=== PATIENT | female | born 1945 | race Caucasian/White ===

== ENCOUNTER 2017-10-03 15:47 | Observation (INO) | payer MEDICARE ==
[~2017-10-03 15:47] MED LIST: ISOVUE-370 76%-LOCM 1 ML ONE
[2017-10-03 16:32] VITALS: BMI 34.3
[2017-10-03] MEDS ORDERED: Ondansetron HCl/PF 4 MG/2 ML Vial SLOW IVP PRN (16:55)
[2017-10-03] MEDS ORDERED: Sodium Chloride 0.9% 1,000 ML IV SCH ×2 (17:30→19:16)
[2017-10-03 17:31] LABS: #Basophils 0.1 thou/uL (0.0-0.2); #Eosinphils 0.2 thou/uL (0.0-0.7); #Monocytes 0.5 thou/uL (0.11-0.59); %Basophils 0.5 % (0.0-1.0); %Lymphocytes 20.8 % (21.0-51.0); %Monocytes 5.2 % (0.0-10.0); %Neutrophils 71.6 % (42.0-75.0); Hemoglobin 13.2 g/dL (12.0-16.0); Mean Corpuscular HGB CONC 33.3 g/dL (32.0-36.0); Mean Platelet Volume 7.1 fL (7.4-10.4); Platelet Count 280 thou/uL (130-400); RBC Distribution Width 12.5 % (11.5-14.5); Red Blood Cell (RBC) Count 4.41 mill/uL (4.20-5.40); White Blood Cell (WBC) Count 9.8 thou/uL (4.8-10.8)
[2017-10-03 17:52] LABS: ALT (SGPT) 13 U/L (8-55); AST (SGOT) 16 U/L (5-34); Albumin 4.1 g/dL (3.4-4.8); Alkaline Phosphatase 100 U/L (40-150); Anion Gap 13 mmol/L (10-20); BUN (Urea Nitrogen) 15 mg/dL (9.8-20.1); Bilirubin, Total 0.5 mg/dL (0.2-1.2); Calc. Creatinine Clearance 91 mL/min (70-130); Calcium 9.7 mg/dL (7.8-10.44); Carbon Dioxide 27 mmol/L (23-31); Chloride 101 mmol/L (98-107); Estimated GFR-MDRD 69; Globulin 3.4 g/dL (2.4-3.5); Glucose 106 mg/dL (80-115); Lipase 134 U/L (8-78); Potassium 4.6 mmol/L (3.5-5.1); Protein, Total 7.5 g/dL (6.0-8.3); Sodium 136 mmol/L (136-145)
[2017-10-03] MEDS ORDERED: Morphine 5 MG/ML SYRINGE SLOW IVP PRN (19:16)
[2017-10-03] MEDS ORDERED: Acetaminophen 500 MG TAB PO PRN (19:16)
[2017-10-03] MEDS ORDERED: cloNIDine 0.1 MG TAB PO PRN (19:16)
[2017-10-03] MEDS ORDERED: hydrALAZINE 20 MG/ML VIAL SLOW IVP PRN (19:16)
[2017-10-03] MEDS ORDERED: HYDROcodone/Acetaminophen 5/325 mg Tablet PO PRN ×2 (19:16)
--- NOTE | 2017-10-03 20:04 | CT ---
CT OF THE ABDOMEN WITH CONTRAST: Comparison: None. History: Epigastric abdominal pain, acute on chronic pancreatitis. History of cholecystectomy. Technique: Multiple contiguous axial images were obtained in a CT of the abdomen only, with contrast. Coronal reformats were performed. FINDINGS: The patient is status post cholecystectomy. There may be subtle stranding change adjacent to the panc reatic body which could represent pancreatitis. No focal pancreatic mass is seen. No calcifications a re seen in the pancreas. The liver, kidneys, adrenal glands, and spleen are unremarkable. No free air or free fluid is seen in the abdomen. The visualized large and small bowel are unremarkab le. No abdominal adenopathy is seen. Atherosclerotic calcifications are seen in the aorta. There are calcified granulomas in both lung bases. Degenerative changes seen in the spine. Abdominal wall soft tissues are unremarkable. IMPRESSION: Possible stranding changes adjacent to the pancreatic body may represent acute pancreatitis. This is very subtle and no obvious complications from pancreatis are identified. POS: ADRIENNE
[2017-10-03] MEDS: Famotidine 20 MG TAB PO SCH (20:41)
[2017-10-03] MEDS: Carvedilol 6.25 MG TAB PO SCH (20:41)
--- NOTE | 2017-10-03 20:50 | HP ---
DATE OF ADMISSION: 10/03/2017 PRIMARY CARE PHYSICIAN: Dr. Patricia Mccracken. PRIMARY PADDING MACHINE OPERATOR: Dr. Juan M Ley. CHIEF COMPLAINT: Abdominal pain and nausea. 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 Patient complained of midepigastric abdominal pain radiating to the back with associated increased bloating sensation. Patient states she has had loose stools, which are common for her noting the co gaston to be green and black and malodorous. Patient denies any alcohol, tobacco, or illicit drug use, recent trauma, injury, or travel history. Patient does state that she was recently placed on hydroch lorothiazide within the last 2 weeks by her primary care provider due to questionable fluid on the nitza ngs. Patient states that her last dose of hydrochlorothiazide was 3 days prior to this evaluation. Patient denied any other changes to her chronic medication regimen and states she has been compliant. Patient states she has had some flares of abdominal pain over the last 2 years, but was hospitalize d at [facility] in 2014 for her last flare of pancreatitis. Patient was transferred to the observation unit receiving intravenous fluids with normal saline as well as Protonix 40 mg x1 dose in travenously. PAST MEDICAL HISTORY: 1. Acute on chronic pancreatitis, questionable etiology. 2. History of celiac disease. 3. Hypertension. 4. Gastroesophageal reflux disease. 5. Hypothyroidism. PAST SURGICAL HISTORY: 1. Status post appendectomy. 2. Status post hysterectomy. 3. Status post cholecystectomy. 4. Status post colonoscopy. CURRENT MEDICATIONS: 1. Allopurinol 100 mg 1 tab p.o. daily. 2. Carvedilol 6.25 mg p.o. b.i.d. 3. Estradiol 1 mg p.o. daily. 4. Hydrochlorothiazide 25 mg p.o. daily, last taken 09/30/2017. 5. Levothyroxine 150 mcg p.o. daily. 6. Lisinopril 20 mg p.o. b.i.d. 7. Protonix 40 mg p.o. daily. ALLERGIES: No known drug allergies. FAMILY HISTORY: Mother with history of breast and lung carcinoma. Dad with history of CVA. SOCIAL HISTORY: , accompanied by her and son in the hospital. Resides in [place], [place]. 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 Functional of all activities of daily living. REVIEW OF SYSTEMS: The following complete review of systems was otherwise negative, except as stated per HPI: Constitutional: Weight loss or gain, ability to conduct usual activities. Skin: Rash, i tching. Eyes: Double vision, pain. ENT/Mouth: Nose bleeding, neck stiffness, pain, tenderness. C ardiovascular: Palpitations, dyspnea on exertion, orthopnea. Respiratory: Shortness of breath, whe ezing, cough, hemoptysis, fever, or night sweats. Gastrointestinal: Poor appetite, abdominal pain, heartburn, nausea, vomiting, constipation, or diarrhea. Genitourinary: Urgency, frequency, dysuria, nocturia. Musculoskeletal: Pain, swelling. Neurologic/Psychiatric: Anxiety, depression. Allergy /Immunologic: Skin rash, bleeding tendency. PHYSICAL EXAMINATION: VITAL SIGNS: On admission, blood pressure 147/66, pulse 73, respiratory rate 18, temperature 98.1 de grees Fahrenheit, O2 saturation 94% on room air. GENERAL APPEARANCE: This is a 71-year-old female, alert and oriented x3, pleasant, convers ant, in no acute distress. HEENT: Pupils equal, round, reactive to light and accommodation. Extraocular muscles intact. Nares patent. OP is clear. NECK: Supple, no cervical adenopathy. CHEST: Lungs are clear to auscultation bilaterally. CARDIOVASCULAR: S1, S2, without noted murmur. ABDOMEN: Obese with tenderness to palpation in the midepigastric and right upper quadrant region. N o palpable mass. Landmarks are difficult to palpate due to patient's body habitus. Bowel sounds dim inished, but positive in all quadrants. EXTREMITIES: Warm and dry with fair turgor. Mild edema noted in lower extremities. NEUROLOGIC: Cranial nerves II-XII are grossly intact. No focal or lateralizing signs appreciated. PERTINENT LABORATORY DATA AND X-RAY FINDINGS: Complete metabolic profile within normal limits. Lipa se 134, previously noted 89 on 04/08/2015. CBC within normal limits. CT of the abdomen and pelvis d ated 10/03/2017, showed questionable stranding of the body of the pancreas. No obstruction, stones, or free air noted. ASSESSMENT AND PLAN: 1. Acute pancreatitis. Patient will be observed on the medical unit. We will continue supportive m easures including intravenous normal saline at 125 mL per hour. N.p.o. status except ice chips. Jackie n control with morphine sulfate 4 mg IV q.4 hours p.r.n. Continue Protonix 40 mg IV q.24 hours. Sheba ck fasting lipid profile in the a.m. No evidence of obstructive process on CT imaging. 2. Nausea without emesis secondarily to #1. Continue Zofran 8 mg IV q.6 hours p.r.n. N.p.o. except ice chips. 3. Abdominal pain, right upper quadrant and midepigastric secondary to #1. See #1 above. 4. Hypertension. Resume home antihypertensive regimen except we will hold hydrochlorothiazide and l isinopril x24 hours. 5. Hypothyroidism. Continue levothyroxine 150 mcg p.o. daily. 6. Gastroesophageal reflux disease. Continue Protonix 40 mg IV q.24 hours. 7. Prophylaxis. Sequential compression devices while in bed. Protonix 40 mg IV q.24 hours. 8. Code status is FULL. Surrogate medical decision maker is patient's spouse.
[2017-10-03] MEDS ORDERED: Pantoprazole 40 MG VIAL IVP SCH (21:00)
[2017-10-04 05:07] LABS: ALT (SGPT) 13 U/L (8-55); AST (SGOT) 15 U/L (5-34); Albumin 3.5 g/dL (3.4-4.8); Alkaline Phosphatase 85 U/L (40-150); Anion Gap 10 mmol/L (10-20); BUN (Urea Nitrogen) 13 mg/dL (9.8-20.1); Bilirubin, Total 0.5 mg/dL (0.2-1.2); Calc. Creatinine Clearance 93 mL/min (70-130); Carbon Dioxide 27 mmol/L (23-31); Cardiac Risk 4.5 (Less than 4.5); Chloride 105 mmol/L (98-107); Cholesterol 180 mg/dl (< 200 Desired); Estimated GFR-MDRD 70; Globulin 2.8 g/dL (2.4-3.5); Glucose 99 mg/dL (80-115); HDL Cholesterol 40 mg/dL (>60 Neg Risk); LDL Cholesterol, Calculated 107 mg/dL; Potassium 4.4 mmol/L (3.5-5.1); Protein, Total 6.3 g/dL (6.0-8.3); Sodium 138 mmol/L (136-145); Triglycerides 163 mg/dL (Less than 150)
[2017-10-04 05:10] LABS: Band 1 % (5-11); Eosinophils 1 % (0-10); Lymphocytes 20 % (21-51); MDiff Complete? YES; Mean Corpuscular Hemoglobin 30.7 pg (27.0-31.0); Mean Corpuscular Volume 90.5 fl (81.0-99.0); Mean Platelet Volume 7.3 fL (7.4-10.4); Monocytes 5 % (0-10); Neutrophil 73 % (42-75); PLT Morphology Comment Appears Adequate; Platelet Count 231 thou/uL (130-400); RBC Distribution Width 12.5 % (11.5-14.5); Red Blood Cell (RBC) Count 3.92 mill/uL (4.20-5.40); White Blood Cell (WBC) Count 6.5 thou/uL (4.8-10.8)
[2017-10-04 07:43] VITALS: BP 135/60; TEMP 97.5
[2017-10-04] MEDS ORDERED: Levothyroxine 150 MCG TAB PO SCH (09:00)
[2017-10-04] MEDS ORDERED: Estradiol 1 MG TAB PO SCH (09:00)
[2017-10-04] MEDS: Famotidine 20 MG TAB PO SCH (10:01)
[2017-10-04] MEDS: Carvedilol 6.25 MG TAB PO SCH (10:01)
--- NOTE | 2017-10-04 10:10 | PRG ---
DATE OF SERVICE: 10/04/2017 SUBJECTIVE: Ms. Martinez is on Levophed. She is still hypotensive. Her mental status seems variable. OBJECTIVE: VITAL SIGNS: Blood pressure is difficult to measure, her pulse is 102. LUNGS: Clear. CARDIAC: She is tachycardic arrest. ABDOMEN: Soft, nontender. EXTREMITIES: No edema. ASSESSMENT: 1. Severe three-vessel coronary disease thought to be an inoperable many years ago. 2. Hypotensive. 3. Intermittent tachycardia. PLAN: 1. Repeat echocardiogram. 2. Comfort care is the treatment at this point, do not resuscitate. The patient's prognosis is very poor.
--- NOTE | 2017-10-04 10:41 | DIS ---
DATE OF ADMISSION: 10/03/2017 DATE OF DISCHARGE: 10/04/2017 DISCHARGE DIAGNOSES: 1. Acute/chronic pancreatitis, improved. 2. Nausea without emesis secondary to #1, resolving. 3. Abdominal pain, right upper quadrant and midepigastric secondary to #1, improved. 4. Hypertension, stable. 5. Hypothyroidism. 6. Gastroesophageal reflux disease, stable. CONSULTATIONS: Dr. Ley with GI service. PERTINENT LABORATORY DATA AND X-RAY FINDINGS: Complete metabolic profile within normal limits. Lipa se ranged between 69-134, total cholesterol 180, triglycerides 163, HDL 40, LDL 107. CBC within norm al limits. CT of the abdomen dated 10/03/2017 showed a possible stranding in the pancreatic body. HOSPITAL COURSE: Patient was observed on the telemetry unit after initially presenting with increasi ng abdominal pain in the context of chronic pancreatitis. The patient's initial lipase noted at 134, at which point the patient was placed on IV fluids as well as n.p.o. status. The patient received I V and oral pain medications and was conservatively managed. CT of the abdomen showed a subtle strand ing changes in the pancreatic body consistent with chronic pancreatitis. The patient was advanced to clear liquids and tolerated without complication. Overall, the patient clinically stable during obs ervation. I have examined and discussed the findings with the patient as well as disposition and fol lowup instructions. At the time of discharge, patient clinically stable and ready for discharge on 0 10/04/2017. DISCHARGE MEDICATIONS: 1. Allopurinol 100 mg 1 tab p.o. daily. 2. Coreg 6.25 mg p.o. b.i.d. 3. Estradiol 1 mg p.o. daily. 4. Hydrochlorothiazide 25 mg p.o. daily. 5. Synthroid 150 mcg p.o. daily. 6. Lisinopril 20 mg p.o. b.i.d. 7. Protonix 40 mg p.o. daily. FOLLOWUP: The patient will follow up with Dr. Patricia Mccracken within 7 days of discharge. The patient will follow up with Dr. Juan M eLy with GI Service within 10 days. CONDITION ON DISCHARGE: Stable. ACTIVITY: ad [place]. DIET: Heart healthy, planned diet x48 hours. CODE STATUS: FULL. DISPOSITION: Home, 10/04/2017.
== END 2017-10-04 11:50 | disposition home or self-care (01) ==
LOC: 2SW 15:47
PROVIDERS: ADMIT Internal Medicine; ATTEND Internal Medicine
DX: K85.90 Acute pancreatitis without necrosis or infection, unspecified (principal); K86.1 Other chronic pancreatitis; K21.9 Gastro-esophageal reflux disease without esophagitis; K90.0 Celiac disease; I10 Essential (primary) hypertension; E03.9 Hypothyroidism, unspecified; Z79.818 Long term (current) use of other agents affecting estrogen receptors and estrogen levels; Z79.899 Other long term (current) drug therapy; Z98.890 Other specified postprocedural states
CPT/HCPCS: 74160; 80053 ×2; 80061; 82150; 83690 ×2; 85007; 85025; 85027; 96361 ×2; 96374; 96375; G0378; G0379; 36415; A4216; C9113; J2405

== ENCOUNTER 2018-12-26 17:44 | Inpatient (IN) | payer MEDICARE ==
[2018-12-26] MEDS ORDERED: Water For Inject, Bacteriostat 30 ML ONE (17:53)
[2018-12-26] MEDS ORDERED: methylPREDNISolone Sod Succ/PF 125 MG/2 ML VIAL ONE (17:53)
[2018-12-26] MEDS ORDERED: Ondansetron PF 4 MG/2 ML Vial ONE ×2 (18:04→18:58)
[2018-12-26] MEDS ORDERED: Famotidine/PF 20 mg/2ml Vial ONE (18:04)
[2018-12-26] MEDS ORDERED: Morphine 4 MG/ML VIAL ONE (18:04)
[2018-12-26 18:21] LABS: #Eosinphils 0.1 thou/uL (0.0-0.7); #Lymphocytes 2.2 thou/uL (1.20-3.40); #Monocytes 0.3 thou/uL (0.11-0.59); #Neutrophils 11.2 thou/uL (1.40-6.50); %Basophils 0.1 % (0.0-1.0); %Eosinophils 0.5 % (0.0-10.0); %Lymphocytes 16.1 % (21.0-51.0); %Monocytes 2.3 % (0.0-10.0); Hemoglobin 14.2 g/dL (12.0-16.0); Mean Corpuscular Hemoglobin 31.3 pg (27.0-31.0); Mean Corpuscular Volume 95.1 fL (78.0-98.0); Mean Platelet Volume 7.9 fL (7.4-10.4); Platelet Count 296 thou/uL (130-400); RBC Distribution Width 13.2 % (11.5-14.5); Red Blood Cell (RBC) Count 4.55 mill/uL (4.20-5.40); White Blood Cell (WBC) Count 13.8 thou/uL (4.8-10.8)
[2018-12-26 18:47] LABS: ALT (SGPT) 13 U/L (8-55); AST (SGOT) 16 U/L (5-34); Alkaline Phosphatase 72 U/L (40-150); Anion Gap 15 mmol/L (10-20); BUN (Urea Nitrogen) 26 mg/dL (9.8-20.1); Bilirubin, Total 0.6 mg/dL (0.2-1.2); Calc. Creatinine Clearance 0 mL/min (70-130); Calcium 9.4 mg/dL (7.8-10.44); Carbon Dioxide 22 mmol/L (23-31); Chloride 102 mmol/L (98-107); Estimated GFR-MDRD 38; Globulin 2.9 g/dL (2.4-3.5); Glucose 120 mg/dL (83-110); Lipase 8 U/L (8-78); Potassium 4.9 mmol/L (3.5-5.1); Protein, Total 6.9 g/dL (6.0-8.3); Sodium 134 mmol/L (136-145)
--- NOTE | 2018-12-26 19:55 | CT ---
CT Abdomen Pelvis W Con HISTORY: Abdominal pain. Angioedema. History of pancreatitis. COMPARISON: 10/03/2017 CT exam. FINDINGS: The lung bases show linear atelectasis or scar. A tiny right pleural effusion is seen. The liver shows no focal abnormalities and measures 18 cm in length. The spleen is within normal limi ts of size. The pancreas shows no definite signs for pancreatitis. The gallbladder has been removed. There is some fairly minimal ascites noted adjacent to the liver and spleen. There is questi onable wall thickening to the antral region of the stomach, this probably just on the basis of underdistention. Right and left adrenal glands and right and left kidneys are normal in size. Calcified splenic artery aneurysm is again noted. There is no significant periaortic or mesenteric adenopathy. There is some fluid within the right colon, it makes it difficult to assess for wall thickening in this region . No pericolonic inflammatory change. There is minimal fluid-filled distention of the terminal ileum also noted. The appendix is not definitively identified. Colonic diverticulosis of the descending and sigmoid colon are seen. Free fluid is seen in the cul-de -sac. No inflammatory process. IMPRESSION: 1. Minimal ascites of uncertain etiology. 2. No CT evidence for pancreatitis. 3. There is fluid within the right colon, this makes the right colon wall difficult to assess for wal l thickening but the changes are probably just related to some fluid within the colon rather than a colitis. 4. Diverticulosis.
[2018-12-26 22:43] VITALS: BMI 35.6
[2018-12-27] MEDS ORDERED: Sodium Chloride 0.9% 1,000 ML IV SCH (07:45)
[2018-12-27] MEDS: diphenhydrAMINE 50 MG CAP PO PRN ×2 (07:50→13:17)
[2018-12-27] MEDS: Estradiol 1 MG TAB PO SCH (07:50)
[2018-12-27] MEDS: Furosemide 20 MG TAB PO SCH (07:51)
[2018-12-27] MEDS: Allopurinol 300 MG TAB PO SCH (07:51)
[2018-12-27] MEDS: Carvedilol 6.25 MG TAB PO SCH (07:51)
[2018-12-27 08:07] LABS: #Lymphocytes 1.5 thou/uL (1.20-3.40); #Monocytes 0.1 thou/uL (0.11-0.59); #Neutrophils 9.4 thou/uL (1.40-6.50); %Basophils 0.1 % (0.0-1.0); %Eosinophils 0.2 % (0.0-10.0); %Lymphocytes 13.9 % (21.0-51.0); %Monocytes 0.7 % (0.0-10.0); %Neutrophils 85.1 % (42.0-75.0); Hemoglobin 12.8 g/dL (12.0-16.0); Mean Corpuscular HGB CONC 33.6 g/dL (32.0-36.0); Mean Corpuscular Hemoglobin 31.6 pg (27.0-31.0); Platelet Count 272 thou/uL (130-400); RBC Distribution Width 12.8 % (11.5-14.5); Red Blood Cell (RBC) Count 4.04 mill/uL (4.20-5.40)
[2018-12-27 08:31] LABS: Bilirubin Negative (Negative); Blood, Urine Negative (Negative); Clarity CLEAR (Clear); Glucose, Urine (Dipstick) Negative (Negative); Leukocyte Negative (Negative); Nitrite Negative (Negative); Protein, Urine (Dipstick) Negative (Neg-Trace); Specific Gravity, Urine 1.035 (1.002-1.036); pH, Urine 5.5 (5.0-9.0)
[2018-12-27 08:37] LABS: Bacteria/HPF None Seen HPF (None Seen); Hyaline Casts/LPF 0-3 HYALINE CAST LPF (0-3 Hyaline); RBC/HPF 0-3 HPF (0-3); Squamous Epithelial 0-3 HPF (0-3); WBC/HPF 0-3 HPF (0-3)
[2018-12-27 08:44] LABS: Urine Culture Reflex No No
[2018-12-27 08:53] LABS: Free T4 (Free Thyroxine) 1.12 ng/dL (0.70-1.48)
[2018-12-27 08:54] LABS: ALT (SGPT) 12 U/L (8-55); AST (SGOT) 13 U/L (5-34); Albumin 4.1 g/dL (3.4-4.8); Alkaline Phosphatase 69 U/L (40-150); Anion Gap 13 mmol/L (10-20); BUN (Urea Nitrogen) 21 mg/dL (9.8-20.1); Bilirubin, Total 0.4 mg/dL (0.2-1.2); Calc. Creatinine Clearance 80 mL/min (70-130); Calcium 9.1 mg/dL (7.8-10.44); Carbon Dioxide 22 mmol/L (23-31); Chloride 105 mmol/L (98-107); Estimated GFR-MDRD 59; Globulin 3.1 g/dL (2.4-3.5); Glucose 135 mg/dL (83-110); Lipase 7 U/L (8-78); Potassium 4.2 mmol/L (3.5-5.1); Protein, Total 7.2 g/dL (6.0-8.3); Sodium 136 mmol/L (136-145)
[2018-12-27] MEDS ORDERED: Allopurinol 100 MG TAB PO SCH (09:00)
[2018-12-27] MEDS ORDERED: Levothyroxine 150 MCG TAB PO SCH (09:00)
[2018-12-27] MEDS ORDERED: Chloraseptic Spray 180 ml Bottle PO PRN (15:37)
[2018-12-27] MEDS ORDERED: Acetaminophen 325 MG TAB PO PRN (16:44)
[2018-12-27] MEDS ORDERED: Senokot S 8.6-50 MG TAB PO PRN (16:44)
[2018-12-27] MEDS ORDERED: predniSONE 20 MG TAB PO SCH (17:00)
--- NOTE | 2018-12-27 18:20 | HP ---
PRIMARY CARE PHYSICIAN: Patricia Mccracken MD CHIEF COMPLAINT: Angioedema. HISTORY OF PRESENT ILLNESS: Ms. Martinez is a pleasant 73-year-old female, who was seen at the emergency room at [facility] after she broke out in hives and her tongue started to swell around noon yesterday. Reports that she has had some difficulty breathing. When she first noticed the hive, she took 2 Benadryl at 1600 hours, and reports that she has been taking captopril for many years. She reports that she did not feel well 2 days ago, did not eat much all day yesterday, had gotten up, was going to go visit her brother who is hospitalized. Reports that they had stopped at a relative's house. She went and use the bathroom, had perfuse diarrhea. When she was leaving, she said she went out front and then started profusely vomiting, threw up several times. Reports that she has a history of chronic pancreatitis and she has been told in the past not to vomit if at all possible. Also, she said that she tries not to, but this was out of her control. She reports that she mostly vomited bile multiple times. She reports that, after that settled down, she got back in the car, was on the way to the hospital when she had another episode of diarrhea, she turned around, came back, cleaned up, and after that time is when she started noticing the hives and the swelling around her face and mouth. She denies taking any new medications. She does report some homemade strawberry ice cream on Tuesday, but that is the only thing that she can think of that with out of her normal routine. She denies any current nausea or vomiting. Reports that the vomiting and the diarrhea stopped yesterday. In the emergency room, it was noted that she had some swelling to the left side of her tongue. She was given some Zofran, epinephrine, morphine, 500 mL of sodium chloride, Pepcid, and some Solu-Medrol, and then was admitted to the observation unit for further management. Here, she reports that she feels itchy. Does report a sore throat, but denies any shortness of breath or sensation that her throat is closing. We added some Benadryl for her this morning after she complained of continued itching. PAST MEDICAL HISTORY: Chronic pancreatitis, GERD, gout, congestive heart failure, history of celiac disease, hypertension, and hypothyroidism. PAST SURGICAL HISTORY: Post appendectomy, post hysterectomy, post cholecystectomy, post colonoscopy. HOME MEDICATIONS: 1. Allopurinol 300 mg p.o. daily. 2. Carvedilol 6.25 mg p.o. b.i.d. 3. Estradiol 1 mg p.o. daily. 4. Furosemide 20 mg p.o. daily. 5. Synthroid 137 mcg p.o. daily. 6. She was taking lisinopril 20 mg p.o. b.i.d., but we have stopped that. 7. Protonix 40 mg p.o. daily. SOCIAL HISTORY: The patient denies any alcohol use. Denies any drug use. No smoking history. ALLERGIES: ANUJA INHIBITORS. REVIEW OF SYSTEMS: Reports tongue swelling. Reports hives. Reports she had some abdominal pain, diarrhea, nausea, vomiting yesterday; denies any currently. All other systems reviewed and are negative unless mentioned in the HPI. PHYSICAL EXAMINATION: VITAL SIGNS: Blood pressure 137/72, pulse is 84, respirations 17, pulse ox is 96% on room air, temperature is 98.3. CONSTITUTIONAL: The patient appears nontoxic, appears pain free. She is alert and oriented to person, place, and time. HEENT: Head is atraumatic and normocephalic. Eyes; eyelids are normal to inspection. Pupils are equally round and reactive to light. ENT; pharynx exam is normal. Uvula is midline. Tonsil exam normal. No edema is noted to the tongue, mouth, or lips. NECK: Normal range of motion. Trachea is midline. RESPIRATORY/CHEST: Breath sounds are clear. There is no wheezing or any respiratory distress. CARDIOVASCULAR: Heart rate, regular rate and rhythm. Heart sounds are normal. ABDOMEN: Nontender. Bowel sounds are heard. BACK: Normal inspection. Normal range of motion. EXTREMITIES: Upper extremities; normal range of motion, motor strength is normal, radial pulses are normal. Lower extremities; normal range of motion, motor strength is normal, pedal pulses equal bilaterally. NEUROLOGIC: The patient is oriented to person, place, and time. Speech is normal. No focal or motor sensory deficits. SKIN: Warm, dry. Normal in color. There is no rash that can be appreciated. PLAN AND ASSESSMENT: 1. Angioedema, most likely from the ANUJA inhibitor that she is on, although she has had continued hives, swelling around her face and tongue appear diminished, although she reports that she has a mild sore throat. We have discontinued the lisinopril. Given her little bit of hydration, she had some acute kidney injury, which is since resolved this morning. Restarted some prednisone. We will do a short burst of Benadryl 50 mg q.6 hours as needed p.r.n. for itching. The patient states that she does not feel well enough to go home currently. We will continue to observe and treat. 2. Gout. We will continue home medications. 3. History of congestive heart failure. We will continue home medications. 4. Hypothyroidism. We will continue home medications. 5. Gastrointestinal and deep venous thrombosis prophylaxis have been started. 6. Hopefully, the patient will improve overnight and potentially can be discharged in the morning. 7. Hospital course depend on clinical findings. Job ID: [id number]
[2018-12-27] MEDS ORDERED: Ondansetron PF 4 MG/2 ML Vial IVP PRN (19:26)
[2018-12-28] MEDS ORDERED: diphenhydrAMINE 50 MG CAP ONE (03:02)
[2018-12-28] MEDS ORDERED: methylPREDNISolone Sod Succ 40 MG VIAL ONE (04:34)
[2018-12-28] MEDS ORDERED: Levothyroxine Sodium 25 MCG TAB ONE (05:59)
[2018-12-28] MEDS ORDERED: Levothyroxine Sodium 112 MCG TAB ONE (05:59)
[2018-12-28] MEDS ORDERED: predniSONE 50 MG TAB PO SCH (08:00)
[2018-12-28] MEDS: Carvedilol 6.25 MG TAB PO SCH ×3 (08:45→21:59)
[2018-12-28] MEDS: Famotidine 20 MG TAB PO SCH ×3 (08:46→21:58)
[2018-12-28] MEDS: Levothyroxine Sodium 112 MCG TAB PO SCH (08:47)
[2018-12-28] MEDS: Levothyroxine Sodium 25 MCG TAB PO SCH (08:47)
[2018-12-28] MEDS: diphenhydrAMINE 50 MG CAP PO PRN (09:33)
[2018-12-28] MEDS: Estradiol 1 MG TAB PO SCH (09:34)
[2018-12-28] MEDS: Furosemide 20 MG TAB PO SCH (09:34)
[2018-12-28] MEDS: Allopurinol 300 MG TAB PO SCH (09:34)
[2018-12-28] MEDS: Enoxaparin Sodium 40 MG/0.4 ML SYRINGE SC SCH (09:38)
[2018-12-28] MEDS ORDERED: diphenhydrAMINE 50 MG/ML VIAL IVP PRN (09:39)
[2018-12-28] MEDS ORDERED: diphenhydrAMINE 50 MG CAP PO PRN (09:39)
[2018-12-28] MEDS: diphenhydrAMINE 50 MG/ML VIAL IVP SCH ×4 (09:57→18:26)
--- NOTE | 2018-12-28 10:45 | PDOC.PN ---
- Subjective Encounter Start Date: 12/28/18 Encounter Start Time: 10:15 Subjective: Patient examined today, family at bedside -: Reports increase in itching/hives overnight, reports some nausea overnt -: Reports she currently feels better after PO benadryl given, no nausea now - Objective Vital Signs & Weight: Vital Signs (12 hours) Temp Pulse Resp BP BP Pulse Ox 12/28/18 08:45 139/62 12/28/18 07:45 97.6 F 57 L 14 157/67 H 93 L Weight Weight 94.12 kg I&O: 12/27/18 12/28/18 12/29/18 06:59 06:59 06:59 Intake Total 1202 Balance 1202 Result Diagrams: 12/27/18 07:56 12/27/18 07:56 Phys Exam - Physical Examination HEENT: PERRLA, moist MMs Neck: no nodes, no JVD Respiratory: clear to auscultation bilateral Cardiovascular: RRR, no significant murmur Gastrointestinal: soft, non-tender Musculoskeletal: no edema, pulses present Neurological: non-focal, normal sensation Lymphatic: no nodes Psychiatric: normal affect, A&O x 3 Skin: cap refill <2 seconds Deviation from normal: Scattered hives to hands, back Dx/Plan - Plan cont current plan of care, out of bed/ambulate Changed benadryl and steroids to IV today, leave pepcid PO -: Will continue to monitor -: Case discussed with Dr. Everett who agrees with plan * . Review of Systems - Review of Systems ENT: Throat Pain Skin: Rash, Other (itching ) - Medications/Allergies Allergies/Adverse Reactions: Allergies Allergy/AdvReac Type Severity Reaction Status Date / Time ANUJA Inhibitors Allergy Verified 12/26/18 22:47 Medications: Current Medications Acetaminophen (Tylenol) 650 mg PO Q4H PRN PRN Reason: Headache/Fever/Mild Pain (1-3) Allopurinol (Zyloprim) 300 mg PO DAILY [facility] Last Admin: 12/28/18 09:34 Dose: 300 mg Carvedilol (Coreg) 6.25 mg PO BID [facility] Last Admin: 12/28/18 09:34 Dose: 6.25 mg Diphenhydramine HCl (Benadryl) 25 mg IVP Q6H [facility] Last Admin: 12/28/18 09:57 Dose: Not Given Enoxaparin Sodium (Lovenox) 40 mg SC 0900 [facility] Last Admin: 12/28/18 09:38 Dose: Not Given Estradiol (Estrace) 1 mg PO DAILY [facility] Last Admin: 12/28/18 09:34 Dose: 1 mg Famotidine (Pepcid) 20 mg PO BID [facility] Last Admin: 12/28/18 09:34 Dose: 20 mg Furosemide (Lasix) 20 mg PO DAILY [facility] Last Admin: 12/28/18 09:34 Dose: 20 mg Levothyroxine Sodium (Synthroid) 112 mcg PO 0600 [facility] Last Admin: 12/28/18 08:47 Dose: Not Given Levothyroxine Sodium (Synthroid) 25 mcg PO 0600 [facility] Last Admin: 12/28/18 08:47 Dose: Not Given Methylprednisolone Sodium Succinate (Solu-Medrol) 40 mg IVP Q6HR [facility] Ondansetron HCl (Zofran) 4 mg IVP Q6H PRN PRN Reason: Nausea/Vomiting Last Admin: 12/27/18 20:00 Dose: 4 mg Pantoprazole Sodium (Protonix) 40 mg PO DAILY [facility] Last Admin: 12/28/18 09:34 Dose: 40 mg Phenol (Chloraseptic [place] 180 Ml Bot) 5 ml PO BIDPRN PRN PRN Reason: Sore Throat Senna/Docusate Sodium (Senokot S) 2 tab PO BID PRN PRN Reason: Constipation Sodium Chloride (Flush - Normal Saline) 10 ml IVF Q12HR [facility] Last Admin: 12/28/18 09:34 Dose: 10 ml Sodium Chloride (Flush - Normal Saline) 10 ml IVF PRN PRN PRN Reason: Saline Flush
[2018-12-28] MEDS: methylPREDNISolone Sod Succ 40 MG VIAL IVP SCH ×2 (11:45→18:26)
[2018-12-28 15:05] LABS: #Monocytes 0.2 thou/uL (0.11-0.59); #Neutrophils 13.4 thou/uL (1.40-6.50); %Basophils 0.1 % (0.0-1.0); %Eosinophils 0.2 % (0.0-10.0); %Lymphocytes 6.6 % (21.0-51.0); %Monocytes 1.1 % (0.0-10.0); Hemoglobin 11.8 g/dL (12.0-16.0); Mean Corpuscular HGB CONC 33.3 g/dL (32.0-36.0); Mean Corpuscular Hemoglobin 31.8 pg (27.0-31.0); Mean Corpuscular Volume 95.5 fL (78.0-98.0); Mean Platelet Volume 8.2 fL (7.4-10.4); Platelet Count 235 thou/uL (130-400); RBC Distribution Width 12.9 % (11.5-14.5); Red Blood Cell (RBC) Count 3.72 mill/uL (4.20-5.40); White Blood Cell (WBC) Count 14.5 thou/uL (4.8-10.8)
[2018-12-28 15:26] LABS: Anion Gap 13 mmol/L (10-20); BUN (Urea Nitrogen) 20 mg/dL (9.8-20.1); Calc. Creatinine Clearance 92 mL/min (70-130); Calcium 9.2 mg/dL (7.8-10.44); Carbon Dioxide 25 mmol/L (23-31); Chloride 105 mmol/L (98-107); Estimated GFR-MDRD 69; Glucose 171 mg/dL (83-110); Potassium 4.6 mmol/L (3.5-5.1); Sodium 138 mmol/L (136-145)
[2018-12-28] MEDS ORDERED: diphenhydrAMINE 25 MG in Sodium Chloride 0.9% 50 ML IVPB SCH (22:30)
[2018-12-28] MEDS ORDERED: diphenhydrAMINE 50 MG/ML VIAL IVP SCH (22:45)
[2018-12-29] MEDS: methylPREDNISolone Sod Succ 40 MG VIAL IVP SCH ×4 (00:30→23:30)
[2018-12-29] MEDS: diphenhydrAMINE 50 MG/ML VIAL IVP SCH (00:31)
[2018-12-29] MEDS: Levothyroxine Sodium 25 MCG TAB PO SCH (05:44)
[2018-12-29] MEDS: Levothyroxine Sodium 112 MCG TAB PO SCH (05:45)
[2018-12-29] MEDS: diphenhydrAMINE 25 MG CAP PO SCH ×4 (05:45→23:30)
[2018-12-29] MEDS ORDERED: HYDROcodone/Acetaminophen 5/325 mg Tablet PO PRN (08:12)
[2018-12-29] MEDS ORDERED: Cepastat Lozenges 1 LOZ PO PRN (08:12)
[2018-12-29] MEDS ORDERED: Bisacodyl 10 MG SUPP PR PRN (08:12)
[2018-12-29] MEDS ORDERED: Loperamide HCl 2 MG CAP PO PRN (08:12)
[2018-12-29] MEDS ORDERED: hydrALAZINE 20 MG/ML VIAL SLOW IVP PRN (08:12)
[2018-12-29] MEDS ORDERED: Diabetic Tussin 200 MG/10 ML UDCUP PO PRN (08:12)
[2018-12-29] MEDS ORDERED: Calcium Carbonate 500 MG ChewTAB PO PRN (08:12)
[2018-12-29] MEDS ORDERED: Sodium Chloride 0.65% Nasal 44 ML BOT EA NARE PRN (08:12)
[2018-12-29] MEDS ORDERED: Ondansetron ODT 4 MG TAB PO PRN (08:12)
[2018-12-29] MEDS ORDERED: Zolpidem Tartrate 5 MG TAB PO PRN (08:12)
[2018-12-29] MEDS ORDERED: predniSONE 20 MG TAB PO SCH (09:00)
[2018-12-29] MEDS: Furosemide 20 MG TAB PO SCH (09:48)
[2018-12-29] MEDS: Famotidine 20 MG TAB PO SCH (09:48)
[2018-12-29] MEDS: Estradiol 1 MG TAB PO SCH (09:48)
[2018-12-29] MEDS: Allopurinol 300 MG TAB PO SCH (09:48)
[2018-12-29] MEDS: Carvedilol 6.25 MG TAB PO SCH ×2 (09:48→20:30)
[2018-12-29] MEDS: Enoxaparin Sodium 40 MG/0.4 ML SYRINGE SC SCH (09:49)
[2018-12-29] MEDS ORDERED: Bacteriostatic Water 30 ML VIAL FS PRN (10:18)
--- NOTE | 2018-12-29 12:23 | PDOC.PN ---
- Subjective Encounter Start Date: 12/29/18 Encounter Start Time: 10:15 pt has diffuse urticaria and pruritis, has facial phethora due to steroid, no diarrhoea, no dyspnea - Objective Resuscitation Status - Order Detail: 12/29/18 08:12 Resuscitation Status Routine Resuscitation Status: FULL: Full Resuscitation MAR Reviewed: Yes Vital Signs & Weight: Vital Signs (12 hours) Temp Pulse Resp BP BP BP Pulse Ox 12/29/18 11:20 97.8 F 60 18 137/71 95 12/29/18 09:48 152/62 H 12/29/18 07:56 97.7 F 77 20 152/62 H 91 L 12/29/18 04:00 97.5 F L 56 L 20 146/74 H 92 L Weight Weight 207 lb 8 oz I&O: 12/28/18 12/29/18 12/30/18 06:59 06:59 06:59 Intake Total 1202 720 Output Total 500 Balance 1202 220 Result Diagrams: 12/28/18 14:47 12/28/18 14:47 Phys Exam - Physical Examination Constitutional: NAD HEENT: PERRLA, moist MMs, sclera anicteric Neck: no JVD, supple Respiratory: no wheezing, no rales, no rhonchi Cardiovascular: RRR, no significant murmur, no rub Gastrointestinal: soft, non-tender, no distention, positive bowel sounds Musculoskeletal: no edema, pulses present Neurological: non-focal, normal sensation Lymphatic: no nodes Psychiatric: normal affect, A&O x 3 Skin: normal turgor Deviation from normal: urticaria Dx/Plan (1) Urticaria Code(s): L50.9 - URTICARIA, UNSPECIFIED Status: Acute (2) Angioedema Code(s): T78.3XXA - ANGIONEUROTIC EDEMA, INITIAL ENCOUNTER Status: Acute (3) GERD (gastroesophageal reflux disease) Code(s): K21.9 - GASTRO-ESOPHAGEAL REFLUX DISEASE WITHOUT ESOPHAGITIS Status: Chronic (4) Gout Code(s): M10.9 - GOUT, UNSPECIFIED Status: Chronic (5) Hypertension Code(s): I10 - ESSENTIAL (PRIMARY) HYPERTENSION Status: Chronic (6) Hypothyroidism Code(s): E03.9 - HYPOTHYROIDISM, UNSPECIFIED Status: Chronic (7) Obesity (BMI 30-39.9) Code(s): E66.9 - OBESITY, UNSPECIFIED Status: Chronic - Plan cont current plan of care, plan discussed w/ family * pt is uncomfortable with itching, will continue solumedrol, pepcid, benadryl * will monitor * advised to follow up with electronic security specialist after discharge * medication reviewed as below * symptomatic treatment * discussed with . Review of Systems - Review of Systems ENT: negative: Ear Pain, Ear Discharge, Nose Pain, Nose Discharge, Nose Congestion, Mouth Pain, Mouth Swelling, Throat Pain, Throat Swelling, Other Respiratory: negative: Cough, Dry, Shortness of Breath, Hemoptysis, SOB with Excertion, Pleuritic Pain, Sputum, Wheezing Cardiovascular: negative: chest pain, palpitations, orthopnea, paroxysmal nocturnal dyspnea, edema, light headedness, other Gastrointestinal: negative: Nausea, Vomiting, Abdominal Pain, Diarrhea, Constipation, Melena, Hematochezia, Other Genitourinary: negative: Dysuria, Frequency, Incontinence, Hematuria, Retention , Other Musculoskeletal: negative: Neck Pain, Shoulder Pain, Arm Pain, Back Pain, Hand Pain, Leg Pain, Foot Pain, Other Skin: Rash. negative: Lesions, Ricardo, Bruising, Other - Medications/Allergies Allergies/Adverse Reactions: Allergies Allergy/AdvReac Type Severity Reaction Status Date / Time ANUJA Inhibitors Allergy Verified 12/26/18 22:47 Medications: Current Medications Acetaminophen (Tylenol) 650 mg PO Q4H PRN PRN Reason: Headache/Fever/Mild Pain (1-3) Hydrocodone Bitart/Acetaminophen ([place] 5/325) 1 tab PO Q4H PRN PRN Reason: Moderate Pain (4-6) Allopurinol (Zyloprim) 300 mg PO DAILY [facility] Last Admin: 12/29/18 09:48 Dose: 300 mg Bisacodyl (Dulcolax) 10 mg [place] DAILYPRN PRN PRN Reason: Constipation Calcium Carbonate (Tums) 1,000 mg PO Q4H PRN PRN Reason: Heartburn or Indigestion Carvedilol (Coreg) 6.25 mg PO BID [facility] Last Admin: 12/29/18 09:48 Dose: 6.25 mg Diphenhydramine HCl (Benadryl) 25 mg PO Q6HR [facility] Last Admin: 12/29/18 11:34 Dose: 25 mg Enoxaparin Sodium (Lovenox) 40 mg SC 0900 [facility] Last Admin: 12/29/18 09:49 Dose: Not Given Estradiol (Estrace) 1 mg PO DAILY [facility] Last Admin: 12/29/18 09:48 Dose: 1 mg Famotidine (Pepcid) 20 mg SLOW IVP BID [facility] Furosemide (Lasix) 20 mg PO DAILY [facility] Last Admin: 12/29/18 09:48 Dose: 20 mg Guaifenesin (Robitussin Sf) 200 mg PO Q4H PRN PRN Reason: Cough Hydralazine HCl (Apresoline) 10 mg SLOW IVP Q4H PRN PRN Reason: SBP > 180 and HR < 70 Hydrocortisone/Aloe (Hydrocortisone 1% Cream) 0 gm TOP BID [facility] Levothyroxine Sodium (Synthroid) 112 mcg PO 0600 [facility] Last Admin: 12/29/18 05:45 Dose: 112 mcg Levothyroxine Sodium (Synthroid) 25 mcg PO 0600 [facility] Last Admin: 12/29/18 05:44 Dose: 25 mcg Loperamide HCl (Imodium) 2 mg PO PRN PRN PRN Reason: Diarrhea/Loose Stools Methylprednisolone Sodium Succinate (Solu-Medrol) 40 mg IVP Q6HR [facility] Last Admin: 12/29/18 11:55 Dose: 40 mg Ondansetron HCl (Zofran) 4 mg IVP Q6H PRN PRN Reason: Nausea/Vomiting Last Admin: 12/27/18 20:00 Dose: 4 mg Ondansetron HCl (Zofran Odt) 4 mg PO Q6H PRN PRN Reason: Nausea/Vomiting Pantoprazole Sodium (Protonix) 40 mg PO DAILY [facility] Last Admin: 12/29/18 09:48 Dose: 40 mg Phenol (Chloraseptic [place] 180 Ml Bot) 5 ml PO BIDPRN PRN PRN Reason: Sore Throat Senna/Docusate Sodium (Senokot S) 2 tab PO BID PRN PRN Reason: Constipation Sodium Chloride (Flush - Normal Saline) 10 ml IVF Q12HR [facility] Last Admin: 12/29/18 09:49 Dose: Not Given Sodium Chloride (Flush - Normal Saline) 10 ml IVF PRN PRN PRN Reason: Saline Flush Sodium Chloride ([place] Nasal [place] 0.65%) 0 ml EA NARE QIDPRN PRN PRN Reason: Nasal Congestion Sterile Water (Bacteriostatic Water) 1 ml FS PRN PRN PRN Reason: RECONSTITUTION Throat Lozenges (Cepastat Lozenges) 1 ebonie PO Q2H PRN PRN Reason: Sore Throat Zolpidem Tartrate (Ambien) 5 mg PO HSPRN PRN PRN Reason: Insomnia
[2018-12-29] MEDS: Hydrocortisone 1% Cream 30 GM TUBE TOP SCH (20:22)
[2018-12-29] MEDS: Famotidine/PF 20 mg/2ml Vial SLOW IVP SCH (20:23)
[2018-12-29] MEDS ORDERED: Hydrocortisone 1% Cream 1.5 GM Packet TOP SCH (21:00)
[2018-12-29] MEDS ORDERED: Carvedilol 3.125 MG TAB PO SCH (21:45)
[2018-12-30] MEDS: Levothyroxine Sodium 112 MCG TAB PO SCH (05:51)
[2018-12-30] MEDS: methylPREDNISolone Sod Succ 40 MG VIAL IVP SCH ×3 (05:51→17:42)
[2018-12-30] MEDS: diphenhydrAMINE 25 MG CAP PO SCH (05:51)
[2018-12-30] MEDS: Levothyroxine Sodium 25 MCG TAB PO SCH (05:51)
[2018-12-30] MEDS: Estradiol 1 MG TAB PO SCH (09:00)
[2018-12-30] MEDS: Allopurinol 300 MG TAB PO SCH (09:00)
[2018-12-30] MEDS: Carvedilol 6.25 MG TAB PO SCH ×2 (09:00→21:24)
[2018-12-30] MEDS: Famotidine/PF 20 mg/2ml Vial SLOW IVP SCH ×2 (09:01→21:25)
[2018-12-30] MEDS: Enoxaparin Sodium 40 MG/0.4 ML SYRINGE SC SCH (09:03)
[2018-12-30] MEDS: Hydrocortisone 1% Cream 30 GM TUBE TOP SCH ×2 (09:03→21:25)
[2018-12-30] MEDS: Furosemide 20 MG TAB PO SCH (09:09)
--- NOTE | 2018-12-30 11:35 | PDOC.PN ---
- Subjective Encounter Start Date: 12/30/18 Encounter Start Time: 09:30 Patient seen and examined. No new complaints. No overnight events pt has less itching, still has generalized urticaria - Objective Resuscitation Status - Order Detail: 12/29/18 08:12 Resuscitation Status Routine Resuscitation Status: FULL: Full Resuscitation MAR Reviewed: Yes Vital Signs & Weight: Vital Signs (12 hours) Temp Pulse Resp BP BP BP Pulse Ox 12/30/18 11:06 97.9 F 60 18 141/72 H 95 12/30/18 09:00 147/70 H 12/30/18 07:32 97.8 F 62 16 147/70 H 95 12/30/18 04:00 97.9 F 53 L 15 143/76 H 95 12/30/18 00:00 97.8 F 52 L 16 158/73 H 94 L Weight Weight 207 lb 8 oz I&O: 12/29/18 12/30/18 12/31/18 06:59 06:59 06:59 Intake Total 720 1366 Output Total 500 Balance 220 1366 Result Diagrams: 12/28/18 14:47 12/28/18 14:47 Phys Exam - Physical Examination Constitutional: NAD HEENT: PERRLA, moist MMs, sclera anicteric Neck: no JVD, supple Respiratory: no wheezing, no rales, no rhonchi Cardiovascular: RRR, no significant murmur, no rub Gastrointestinal: soft, non-tender, no distention, positive bowel sounds Musculoskeletal: no edema, pulses present Neurological: non-focal, normal sensation, moves all 4 limbs Psychiatric: normal affect, A&O x 3 Skin: normal turgor Deviation from normal: generalised urticaria Dx/Plan (1) Urticaria Code(s): L50.9 - URTICARIA, UNSPECIFIED Status: Acute (2) Angioedema Code(s): T78.3XXA - ANGIONEUROTIC EDEMA, INITIAL ENCOUNTER Status: Resolved (3) GERD (gastroesophageal reflux disease) Code(s): K21.9 - GASTRO-ESOPHAGEAL REFLUX DISEASE WITHOUT ESOPHAGITIS Status: Chronic (4) Gout Code(s): M10.9 - GOUT, UNSPECIFIED Status: Chronic (5) Hypertension Code(s): I10 - ESSENTIAL (PRIMARY) HYPERTENSION Status: Chronic (6) Hypothyroidism Code(s): E03.9 - HYPOTHYROIDISM, UNSPECIFIED Status: Chronic (7) Obesity (BMI 30-39.9) Code(s): E66.9 - OBESITY, UNSPECIFIED Status: Chronic - Plan cont current plan of care, plan discussed w/ family * DC Lasix may be culprit * continue IV solumderol, benadryl and pepcid * outpt mapping specialist follow up * medication reviewed as below * symptomatic treatment. Review of Systems - Review of Systems ENT: negative: Ear Pain, Ear Discharge, Nose Pain, Nose Discharge, Nose Congestion, Mouth Pain, Mouth Swelling, Throat Pain, Throat Swelling, Other Respiratory: negative: Cough, Dry, Shortness of Breath, Hemoptysis, SOB with Excertion, Pleuritic Pain, Sputum, Wheezing Cardiovascular: negative: chest pain, palpitations, orthopnea, paroxysmal nocturnal dyspnea, edema, light headedness, other Gastrointestinal: negative: Nausea, Vomiting, Abdominal Pain, Diarrhea, Constipation, Melena, Hematochezia, Other Genitourinary: negative: Dysuria, Frequency, Incontinence, Hematuria, Retention , Other Musculoskeletal: negative: Neck Pain, Shoulder Pain, Arm Pain, Back Pain, Hand Pain, Leg Pain, Foot Pain, Other - Medications/Allergies Allergies/Adverse Reactions: Allergies Allergy/AdvReac Type Severity Reaction Status Date / Time ANUJA Inhibitors Allergy Verified 12/26/18 22:47 Medications: Current Medications Acetaminophen (Tylenol) 650 mg PO Q4H PRN PRN Reason: Headache/Fever/Mild Pain (1-3) Allopurinol (Zyloprim) 300 mg PO DAILY [facility] Last Admin: 12/30/18 09:00 Dose: 300 mg Bisacodyl (Dulcolax) 10 mg [place] DAILYPRN PRN PRN Reason: Constipation Calcium Carbonate (Tums) 1,000 mg PO Q4H PRN PRN Reason: Heartburn or Indigestion Carvedilol (Coreg) 6.25 mg PO BID [facility] Last Admin: 12/30/18 09:00 Dose: 6.25 mg Diphenhydramine HCl (Benadryl) 25 mg IVP Q6HR [facility] Enoxaparin Sodium (Lovenox) 40 mg SC 0900 [facility] Last Admin: 12/30/18 09:03 Dose: 40 mg Estradiol (Estrace) 1 mg PO DAILY [facility] Last Admin: 12/30/18 09:00 Dose: 1 mg Famotidine (Pepcid) 20 mg SLOW IVP BID [facility] Last Admin: 12/30/18 09:01 Dose: 20 mg Guaifenesin (Robitussin Sf) 200 mg PO Q4H PRN PRN Reason: Cough Hydralazine HCl (Apresoline) 10 mg SLOW IVP Q4H PRN PRN Reason: SBP > 180 and HR < 70 Hydrocortisone/Aloe (Hydrocortisone 1% Cream) 0 gm TOP BID [facility] Last Admin: 12/30/18 09:03 Dose: 1 applic Hydroxyzine HCl (Atarax) 25 mg PO Q8H PRN PRN Reason: Itching Levothyroxine Sodium (Synthroid) 112 mcg PO 0600 [facility] Last Admin: 12/30/18 05:51 Dose: 112 mcg Levothyroxine Sodium (Synthroid) 25 mcg PO 0600 [facility] Last Admin: 12/30/18 05:51 Dose: 25 mcg Loperamide HCl (Imodium) 2 mg PO PRN PRN PRN Reason: Diarrhea/Loose Stools Methylprednisolone Sodium Succinate (Solu-Medrol) 40 mg IVP Q6HR [facility] Last Admin: 12/30/18 05:51 Dose: 40 mg Ondansetron HCl (Zofran) 4 mg IVP Q6H PRN PRN Reason: Nausea/Vomiting Last Admin: 12/27/18 20:00 Dose: 4 mg Ondansetron HCl (Zofran Odt) 4 mg PO Q6H PRN PRN Reason: Nausea/Vomiting Pantoprazole Sodium (Protonix) 40 mg PO DAILY [facility] Last Admin: 12/30/18 09:00 Dose: 40 mg Phenol (Chloraseptic [place] 180 Ml Bot) 5 ml PO BIDPRN PRN PRN Reason: Sore Throat Last Admin: 12/30/18 08:59 Dose: 1 spr Senna/Docusate Sodium (Senokot S) 2 tab PO BID PRN PRN Reason: Constipation Sodium Chloride (Flush - Normal Saline) 10 ml IVF Q12HR [facility] Last Admin: 12/30/18 09:10 Dose: 10 ml Sodium Chloride (Flush - Normal Saline) 10 ml IVF PRN PRN PRN Reason: Saline Flush Last Admin: 12/29/18 23:31 Dose: 10 ml Sodium Chloride ([place] Nasal [place] 0.65%) 0 ml EA NARE QIDPRN PRN PRN Reason: Nasal Congestion Sterile Water (Bacteriostatic Water) 1 ml FS PRN PRN PRN Reason: RECONSTITUTION Throat Lozenges (Cepastat Lozenges) 1 ebonie PO Q2H PRN PRN Reason: Sore Throat Zolpidem Tartrate (Ambien) 5 mg PO HSPRN PRN PRN Reason: Insomnia
[2018-12-30] MEDS: diphenhydrAMINE 50 MG/ML VIAL IVP SCH ×2 (13:36→17:42)
[2018-12-31] MEDS: methylPREDNISolone Sod Succ 40 MG VIAL IVP SCH ×2 (00:28→05:26)
[2018-12-31] MEDS: diphenhydrAMINE 50 MG/ML VIAL IVP SCH ×2 (00:29→05:46)
[2018-12-31] MEDS: Levothyroxine Sodium 25 MCG TAB PO SCH (05:26)
[2018-12-31] MEDS: Levothyroxine Sodium 112 MCG TAB PO SCH (05:26)
[2018-12-31] MEDS ORDERED: diphenhydrAMINE 25 MG CAP PO SCH (06:30)
[2018-12-31] MEDS: hydrOXYzine 25 MG TAB PO PRN ×2 (09:08→17:16)
[2018-12-31] MEDS: Estradiol 1 MG TAB PO SCH (09:08)
[2018-12-31] MEDS: predniSONE 20 MG TAB PO SCH (09:08)
[2018-12-31] MEDS: Hydrocortisone 1% Cream 30 GM TUBE TOP SCH ×2 (09:09→20:38)
[2018-12-31] MEDS: Allopurinol 300 MG TAB PO SCH (09:09)
[2018-12-31] MEDS: Famotidine 20 MG TAB PO SCH ×2 (09:09→20:38)
[2018-12-31] MEDS: Carvedilol 6.25 MG TAB PO SCH ×2 (09:09→21:37)
[2018-12-31] MEDS: Enoxaparin Sodium 40 MG/0.4 ML SYRINGE SC SCH (09:13)
[2018-12-31 10:57] LABS: #Eosinphils 0.1 thou/uL (0.0-0.7); #Lymphocytes 1.2 thou/uL (1.20-3.40); #Monocytes 0.7 thou/uL (0.11-0.59); #Neutrophils 10.4 thou/uL (1.40-6.50); %Basophils 0.1 % (0.0-1.0); %Eosinophils 0.5 % (0.0-10.0); %Lymphocytes 9.8 % (21.0-51.0); %Monocytes 5.8 % (0.0-10.0); %Neutrophils 83.8 % (42.0-75.0); Hemoglobin 11.4 g/dL (12.0-16.0); Mean Corpuscular HGB CONC 33.2 g/dL (32.0-36.0); Mean Corpuscular Hemoglobin 31.4 pg (27.0-31.0); Mean Corpuscular Volume 94.5 fL (78.0-98.0); Mean Platelet Volume 8.2 fL (7.4-10.4); Platelet Count 228 thou/uL (130-400); Red Blood Cell (RBC) Count 3.64 mill/uL (4.20-5.40); White Blood Cell (WBC) Count 12.4 thou/uL (4.8-10.8)
[2018-12-31 11:20] LABS: ALT (SGPT) 14 U/L (8-55); AST (SGOT) 14 U/L (5-34); Albumin 3.6 g/dL (3.4-4.8); Alkaline Phosphatase 53 U/L (40-150); Anion Gap 12 mmol/L (10-20); BUN (Urea Nitrogen) 22 mg/dL (9.8-20.1); Bilirubin, Total 0.3 mg/dL (0.2-1.2); Calc. Creatinine Clearance 101 mL/min (70-130); Calcium 8.8 mg/dL (7.8-10.44); Carbon Dioxide 25 mmol/L (23-31); Chloride 103 mmol/L (98-107); Estimated GFR-MDRD 76; Globulin 2.5 g/dL (2.4-3.5); Glucose 114 mg/dL (83-110); Lipase 9 U/L (8-78); Protein, Total 6.1 g/dL (6.0-8.3); Sodium 136 mmol/L (136-145)
--- NOTE | 2018-12-31 11:24 | PDOC.PN ---
- Subjective Encounter Start Date: 12/31/18 Encounter Start Time: 09:10 Patient seen and examined. No new complaints. No overnight events - Objective Resuscitation Status - Order Detail: 12/29/18 08:12 Resuscitation Status Routine Resuscitation Status: FULL: Full Resuscitation MAR Reviewed: Yes Vital Signs & Weight: Vital Signs (12 hours) Temp Pulse Resp BP BP BP Pulse Ox 12/31/18 09:09 174/75 H 12/31/18 07:52 97.7 F 51 L 20 174/75 H 97 12/31/18 04:00 98.0 F 53 L 14 171/74 H 97 12/31/18 00:00 98.2 F 50 L 16 137/80 95 Weight Weight 207 lb 8 oz I&O: 12/30/18 12/31/18 01/01/19 06:59 06:59 06:59 Intake Total 1366 400 Balance 1366 400 Result Diagrams: 12/31/18 10:50 12/31/18 10:50 Phys Exam - Physical Examination Constitutional: NAD HEENT: PERRLA, moist MMs, sclera anicteric Neck: no JVD, supple Respiratory: no wheezing, no rales, no rhonchi Cardiovascular: RRR, no significant murmur, no rub Gastrointestinal: soft, non-tender, no distention, positive bowel sounds Musculoskeletal: no edema, pulses present Neurological: non-focal, normal sensation, moves all 4 limbs Lymphatic: no nodes Psychiatric: normal affect, A&O x 3 Skin: normal turgor Deviation from normal: urticaria+ Dx/Plan (1) Urticaria Code(s): L50.9 - URTICARIA, UNSPECIFIED Status: Acute (2) Angioedema Code(s): T78.3XXA - ANGIONEUROTIC EDEMA, INITIAL ENCOUNTER Status: Resolved (3) GERD (gastroesophageal reflux disease) Code(s): K21.9 - GASTRO-ESOPHAGEAL REFLUX DISEASE WITHOUT ESOPHAGITIS Status: Chronic (4) Gout Code(s): M10.9 - GOUT, UNSPECIFIED Status: Chronic (5) Hypertension Code(s): I10 - ESSENTIAL (PRIMARY) HYPERTENSION Status: Chronic (6) Hypothyroidism Code(s): E03.9 - HYPOTHYROIDISM, UNSPECIFIED Status: Chronic (7) Obesity (BMI 30-39.9) Code(s): E66.9 - OBESITY, UNSPECIFIED Status: Chronic - Plan cont current plan of care, plan discussed w/ family * today will monitor with oral meds, prednisone, benadryl, atarax, * will add singulair * if her symptoms controlled with oral meds, pt would be comfortable to go home tomorrow * medication reviewed as below * symptomatic treatment. Review of Systems - Review of Systems Eyes: negative: Pain, Vision Change, Conjunctivae Inflammation, Eyelid Inflammation, Redness, Other ENT: negative: Ear Pain, Ear Discharge, Nose Pain, Nose Discharge, Nose Congestion, Mouth Pain, Mouth Swelling, Throat Pain, Throat Swelling, Other Respiratory: negative: Cough, Dry, Shortness of Breath, Hemoptysis, SOB with Excertion, Pleuritic Pain, Sputum, Wheezing Cardiovascular: negative: chest pain, palpitations, orthopnea, paroxysmal nocturnal dyspnea, edema, light headedness, other Gastrointestinal: negative: Nausea, Vomiting, Abdominal Pain, Diarrhea, Constipation, Melena, Hematochezia, Other Genitourinary: negative: Dysuria, Frequency, Incontinence, Hematuria, Retention , Other Musculoskeletal: negative: Neck Pain, Shoulder Pain, Arm Pain, Back Pain, Hand Pain, Leg Pain, Foot Pain, Other Skin: Rash. negative: Lesions, Ricardo, Bruising, Other - Medications/Allergies Allergies/Adverse Reactions: Allergies Allergy/AdvReac Type Severity Reaction Status Date / Time ANUJA Inhibitors Allergy Verified 12/26/18 22:47 Medications: Current Medications Acetaminophen (Tylenol) 650 mg PO Q4H PRN PRN Reason: Headache/Fever/Mild Pain (1-3) Allopurinol (Zyloprim) 300 mg PO DAILY [facility] Last Admin: 12/31/18 09:09 Dose: 300 mg Bisacodyl (Dulcolax) 10 mg [place] DAILYPRN PRN PRN Reason: Constipation Calcium Carbonate (Tums) 1,000 mg PO Q4H PRN PRN Reason: Heartburn or Indigestion Carvedilol (Coreg) 6.25 mg PO BID [facility] Last Admin: 12/31/18 09:09 Dose: 6.25 mg Diphenhydramine HCl (Benadryl) 25 mg PO Q6HR [facility] Enoxaparin Sodium (Lovenox) 40 mg SC 0900 [facility] Last Admin: 12/31/18 09:13 Dose: Not Given Estradiol (Estrace) 1 mg PO DAILY [facility] Last Admin: 12/31/18 09:08 Dose: 1 mg Famotidine (Pepcid) 20 mg PO BID [facility] Last Admin: 12/31/18 09:09 Dose: 20 mg Guaifenesin (Robitussin Sf) 200 mg PO Q4H PRN PRN Reason: Cough Hydralazine HCl (Apresoline) 10 mg SLOW IVP Q4H PRN PRN Reason: SBP > 180 and HR < 70 Hydrocortisone/Aloe (Hydrocortisone 1% Cream) 0 gm TOP BID [facility] Last Admin: 12/30/18 21:25 Dose: 1 applic Hydroxyzine HCl (Atarax) 25 mg PO Q8H PRN PRN Reason: Itching Last Admin: 12/31/18 09:08 Dose: 25 mg Levothyroxine Sodium (Synthroid) 112 mcg PO 0600 [facility] Last Admin: 12/31/18 05:26 Dose: 112 mcg Levothyroxine Sodium (Synthroid) 25 mcg PO 0600 [facility] Last Admin: 12/31/18 05:26 Dose: 25 mcg Loperamide HCl (Imodium) 2 mg PO PRN PRN PRN Reason: Diarrhea/Loose Stools Montelukast Sodium (Singulair) 10 mg PO QPM [facility] Ondansetron HCl (Zofran) 4 mg IVP Q6H PRN PRN Reason: Nausea/Vomiting Last Admin: 12/27/18 20:00 Dose: 4 mg Ondansetron HCl (Zofran Odt) 4 mg PO Q6H PRN PRN Reason: Nausea/Vomiting Pantoprazole Sodium (Protonix) 40 mg PO DAILY [facility] Last Admin: 12/31/18 09:09 Dose: 40 mg Phenol (Chloraseptic [place] 180 Ml Bot) 5 ml PO BIDPRN PRN PRN Reason: Sore Throat Last Admin: 12/30/18 08:59 Dose: 1 spr Prednisone (Prednisone) 40 mg PO QAM-WM [facility] Last Admin: 12/31/18 09:08 Dose: 40 mg Senna/Docusate Sodium (Senokot S) 2 tab PO BID PRN PRN Reason: Constipation Sodium Chloride (Flush - Normal Saline) 10 ml IVF Q12HR [facility] Last Admin: 12/30/18 21:25 Dose: 10 ml Sodium Chloride (Flush - Normal Saline) 10 ml IVF PRN PRN PRN Reason: Saline Flush Last Admin: 12/29/18 23:31 Dose: 10 ml Sodium Chloride ([place] Nasal [place] 0.65%) 0 ml EA NARE QIDPRN PRN PRN Reason: Nasal Congestion Throat Lozenges (Cepastat Lozenges) 1 ebonie PO Q2H PRN PRN Reason: Sore Throat Zolpidem Tartrate (Ambien) 5 mg PO HSPRN PRN PRN Reason: Insomnia
[2018-12-31] MEDS ORDERED: Montelukast Sodium 10 mg Tablet PO SCH ×2 (12:30→21:00)
[2018-12-31] MEDS: diphenhydrAMINE 25 MG CAP PO SCH ×2 (13:38→17:16)
[2018-12-31] MEDS ORDERED: hydrALAZINE 25 MG TAB PO SCH (21:45)
[2019-01-01] MEDS: diphenhydrAMINE 25 MG CAP PO SCH ×2 (00:22→05:51)
[2019-01-01] MEDS: Levothyroxine Sodium 25 MCG TAB PO SCH (05:51)
[2019-01-01] MEDS: Levothyroxine Sodium 112 MCG TAB PO SCH (05:51)
[2019-01-01] MEDS: hydrOXYzine 25 MG TAB PO PRN (07:06)
[2019-01-01] MEDS: Estradiol 1 MG TAB PO SCH (08:05)
[2019-01-01] MEDS: Carvedilol 6.25 MG TAB PO SCH (08:06)
[2019-01-01] MEDS: Allopurinol 300 MG TAB PO SCH (08:06)
[2019-01-01] MEDS: Famotidine 20 MG TAB PO SCH (08:06)
[2019-01-01] MEDS: predniSONE 20 MG TAB PO SCH (08:06)
[2019-01-01] MEDS: Hydrocortisone 1% Cream 30 GM TUBE TOP SCH (08:07)
[2019-01-01] MEDS: Enoxaparin Sodium 40 MG/0.4 ML SYRINGE SC SCH ×2 (08:07→08:11)
[2019-01-01 08:25] VITALS: BP 188/68; TEMP 97.7
[2019-01-01] MEDS ORDERED: Montelukast Sodium 10 mg Tablet PO SCH (09:00)
[2019-01-01] MEDS ORDERED: Amlodipine 10 MG TAB PO SCH (09:40)
--- NOTE | 2019-01-01 21:24 | DIS ---
DATE OF ADMISSION: 12/28/2018 DATE OF DISCHARGE: 01/01/2019 PRIMARY CARE PHYSICIAN: Patricia Mccracken MD DISCHARGE DISPOSITION: Home. PRIMARY DISCHARGE DIAGNOSES: ANUJA inhibitor induced angioedema, urticaria due to unspecified etiology. SECONDARY DISCHARGE DIAGNOSES: Gastroesophageal reflux disease, gout, hypertension, and obesity. PRIMARY PROCEDURE/OPERATION: None. RADIOLOGICAL INVESTIGATION: Abdomen and pelvis CT scan on admission showed no acute pancreatitis, mild diverticulosis. SIGNIFICANT LABORATORY DATA: WBC 12.4, hemoglobin 11.4, and platelet 228. Sodium 136, potassium 4.0, BUN 22, and creatinine 0.75. LFT normal. Free T4 and T3 normal and TSH was low. Urinalysis normal. DISCHARGE MEDICATIONS: 1. Allopurinol 300 mg p.o. daily. 2. Coreg 6.25 mg p.o. b.i.d. 3. Estrace 1 mg p.o. daily. 4. Synthroid 137 mcg p.o. daily. 5. Protonix 40 mg p.o. daily. 6. Amlodipine 10 mg daily. 7. Pepcid 20 mg b.i.d. 8. Atarax 25 mg p.o. q.8 hourly. 9. Singulair 10 mg p.o. daily. 10. Prednisone 40 mg p.o. daily for 7 days. CONTRAINDICATION: None. CODE STATUS: Full code. 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 ALLERGY: ANUJA inhibitor. DISCHARGE PLAN: Posthospital, the patient is strongly advised to follow up with disability specialist and primary care physician in 1 week. HOSPITAL COURSE: A 73-year-old female, who was admitted by Cathryn Pisano, please see her H and P for further details. The patient was admitted for angioedema. She was taking ANUJA inhibitor and that is why she was suspected for ANUJA inhibitor induced angioedema. Her angioedema rapidly improved, but subsequently, she was having intermittent urticarial reaction, which was treated with prednisone, Pepcid, Benadryl, and Atarax. We also added Singulair on her regimen. On admission, she had CT abdomen and pelvis, which did not show any pancreatitis, but it did show some fluid in colon. The patient was overall hemodynamically stable. She was not having any bronchospasm. At this point, we discontinued ANUJA inhibitor, because suspecting allergic reaction with lisinopril and instead, we started amlodipine for blood pressure. We also suspected that the patient may have allergic reaction with Lasix from sulfa drugs, but it is not confirmed and proven, but that medication was also discontinued, because there was clinical association with urticaria and that medication per the patient. By the time of discharge, the patient was stable. She was instructed to follow up with allergy specialists and primary care physician. I have seen and examined the patient at bedside today. PHYSICAL EXAMINATION: VITAL SIGNS: Currently, temperature 97.7, pulse 52, respiratory rate 18, saturation 99% on room air, and blood pressure 155/57. Weight 207 pounds. GENERAL: The patient is currently alert and awake, no obvious acute distress. HEENT: Head, normocephalic and atraumatic. LUNGS: Clear to auscultation without any rhonchi or rales. CARDIAC: S1 and S2. Regular without any murmur. ABDOMEN: Soft and benign. EXTREMITIES: No edema. NEUROLOGIC: Nonfocal examination. Overall, the patient is medically stable for discharge. Job ID: [id number]
== END 2019-01-01 12:41 | disposition home or self-care (01) | DRG 916 ==
LOC: ERS 17:44 → 2SW 22:12 → OBSVTOIN 12-28 18:38 → T4-B 12-28 20:55
PROVIDERS: ADMIT Hospitalist; ATTEND Hospitalist
DX: T78.3XXA Angioneurotic edema, initial encounter (principal); K86.1 Other chronic pancreatitis; K21.9 Gastro-esophageal reflux disease without esophagitis; M10.9 Gout, unspecified; I11.0 Hypertensive heart disease with heart failure; I50.9 Heart failure, unspecified; E03.9 Hypothyroidism, unspecified; L50.9 Urticaria, unspecified; E66.9 Obesity, unspecified; T46.4X5A Adverse effect of angiotensin-converting-enzyme inhibitors, initial encounter; Z79.899 Other long term (current) drug therapy; Z68.35 Body mass index [BMI] 35.0-35.9, adult; Z90.49 Acquired absence of other specified parts of digestive tract; Z88.8 Allergy status to other drugs, medicaments and biological substances; Z90.710 Acquired absence of both cervix and uterus; Z88.2 Allergy status to sulfonamides
CPT/HCPCS: 36415; 74177; 80048; 80053; 81001; 82150; 83605; 83690; 84439; 84443; 84481; 85025; 96361; 96372; 96374; 96375; J1200; J1650; J2270; J2405; J2920; J2930; J7512; Q0163; Q9966; S0028